=== PATIENT | male | born 1955 | race African-American/Black ===

== ENCOUNTER 2018-07-15 08:09 | Emergency (ER) | payer BC, OTHER ==
--- NOTE | 2018-07-15 09:13 | RAD ---
Exam: Left hip 2 views: HISTORY: Left hip pain, worsening FINDINGS: Arthrosis and degenerative changes left hip joint. Subchondral cystic changes of the acetabulum and f emoral head. No fracture or dislocation. IMPRESSION: Arthrosis and degenerative changes. No fracture or dislocation.
== END 2018-07-15 09:41 | disposition home or self-care (01) ==
LOC: ERS 08:09
DX: M19.90 Unspecified osteoarthritis, unspecified site (principal); L98.9 Disorder of the skin and subcutaneous tissue, unspecified

== ENCOUNTER 2018-08-17 14:19 | Observation (INO) | payer OTHER ==
[2018-08-17 14:46] LABS: #Basophils 0.1 thou/uL (0.0-0.2); #Eosinphils 0.2 thou/uL (0.0-0.7); #Lymphocytes 2.2 thou/uL (1.20-3.40); #Monocytes 0.7 thou/uL (0.11-0.59); %Eosinophils 3.7 % (0.0-10.0); %Lymphocytes 42.9 % (21.0-51.0); %Monocytes 14.1 % (0.0-10.0); %Neutrophils 38.4 % (42.0-75.0); Hemoglobin 14.2 g/dL (14.0-18.0); Mean Corpuscular HGB CONC 34.1 g/dL (32.0-36.0); Mean Corpuscular Hemoglobin 31.2 pg (27.0-31.0); Mean Corpuscular Volume 91.4 fL (78.0-98.0); Mean Platelet Volume 7.4 fL (7.4-10.4); Platelet Count 227 thou/uL (130-400); RBC Distribution Width 12.2 % (11.5-14.5); Red Blood Cell (RBC) Count 4.55 mill/uL (4.70-6.10); White Blood Cell (WBC) Count 5.2 thou/uL (4.8-10.8)
[2018-08-17 14:52] LABS: PTT 32.7 SEC (22.9-36.1); Prothrombin Time 13.8 SEC (12.0-14.7)
[2018-08-17 14:53] LABS: INR-International Normal Ratio 1.1
--- NOTE | 2018-08-17 14:53 | CT ---
CT Brain WO Con: 08/17/2018 2:38 PM CLINICAL HISTORY: Stroke, slurred speech with upper extremity paresthesias. COMPARISON: None. FINDINGS: Hemorrhage: None. Ventricular system: Normal in size and morphology for the patient's age. Cerebral parenchyma: Normal Midline shift: None. Mass: No mass effect. Calvarium: Normal. Visualized Paranasal sinuses: Scattered mild inflammatory mucosal thickening. Superimposed fluid leve l present within the sphenoid sinus. IMPRESSION: No acute intracranial abnormalities. Telephone call placed to ER physician Fernando Abad at time of dictation, 1448 hours. Code CR
--- NOTE | 2018-08-17 14:55 | RAD ---
Exam: Chest one view HISTORY:Altered mental status, stroke, slurred speech, approximately paresthesia Comparison: 16 October 2013 FINDINGS: Lungs: Linear right basilar densities are present. There is elevation of the right hemidiaphragm. Cardiac silhouette: Stable in size. No pleural effusion or pneumothorax. IMPRESSION: Elevated right hemidiaphragm with adjacent scarring and/or atelectasis.
[2018-08-17 15:07] LABS: ALT (SGPT) 31 U/L (8-55); AST (SGOT) 34 U/L (5-34); Albumin 4.9 g/dL (3.4-4.8); Alkaline Phosphatase 58 U/L (40-150); Anion Gap 16 mmol/L (10-20); BUN (Urea Nitrogen) 15 mg/dL (8.4-25.7); Bilirubin, Total 0.7 mg/dL (0.2-1.2); CK (CPK) 1037 U/L (30-200); Calc. Creatinine Clearance 0 mL/min (70-130); Calcium 10.6 mg/dL (7.8-10.44); Carbon Dioxide 24 mmol/L (23-31); Chloride 102 mmol/L (98-107); Estimated GFR-MDRD 64; Globulin 2.9 g/dL (2.4-3.5); Glucose 71 mg/dL (80-115); Potassium 4.2 mmol/L (3.5-5.1); Protein, Total 7.8 g/dL (5.8-8.1); Sodium 138 mmol/L (136-145)
[2018-08-17 16:14] LABS: Bilirubin Negative (Negative); Blood, Urine Negative (Negative); Clarity CLEAR (Clear); Glucose, Urine (Dipstick) Negative (Negative); Leukocyte Negative (Negative); Nitrite Negative (Negative); Protein, Urine (Dipstick) Negative (Neg-Trace); Specific Gravity, Urine 1.017 (1.002-1.036); Urobilinogen 0.2 mg/dL (0.2-1.0); pH, Urine 5.5 (5.0-9.0)
[2018-08-17] MEDS ORDERED: Aspirin Chewable 81 MG TAB ONE (16:25)
[2018-08-17] MEDS ORDERED: Ondansetron PF 4 MG/2 ML Vial IVP PRN (18:05)
[2018-08-17] MEDS ORDERED: Ondansetron ODT 4 MG TAB SL PRN (18:05)
[2018-08-17] MEDS ORDERED: Sodium Chloride 0.9% 1,000 ML IV SCH ×2 (18:05→18:55)
[2018-08-17 18:18] LABS: Troponin I 0.015 ng/mL (< 0.028)
[2018-08-17 18:35] VITALS: BMI 29.0
--- NOTE | 2018-08-17 20:19 | HP ---
This is EILEEN Huerta dictating a report for Stephen Johnson MD. REASON FOR ADMISSION: TIA/CVA rule out. HISTORY OF PRESENT ILLNESS: Mr. Chino is a pleasant 62-year-old man, presents due to unusual symptoms he experienced yesterday. He was prompted by his to come in due to residual tingling in the right thumb. The patient states he began the day yesterday morning with taking a 3-mile walk with his . He states at the end of that he was profusely sweating. 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 The patient states he felt well and himself after the walk, but he admits to not eating more than a banana yesterday, though he reports maintaining adequate hydration. 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 He denies any real weakness or numbness or reduced sensation in his hands, but states whenever he tried to grasp the Bible or his papers, his hands would immediately open and cause him to drop things. He was able to pick the items up repeatedly, but it continued to happen. This lasted about 15-20 minutes. He denies any associated symptoms at that time. No numbness, tingling, or weakness elsewhere. No slurred speech. No headache. No dizziness, nausea, or vomiting. The patient states shortly after he went to a meeting at [employer], he states he sat down at his desk and suddenly fell asleep. He was woken by his staff and was easily awoken. He went into his meeting and during his meeting, states he began to "doze off." The patient states he felt completely drained. He then recalls holding a calendar in his hands, but unable to speak or see for at least 20-30 minutes. He states he was fidgeting with the papers in his hands and the meeting carried on without him. He reports profusely sweating at that time. Again, denies any headache, any chest pain, or shortness of breath. Shortly after that, he fully recovered and denies experiencing any slurred speech. No further vision disturbances. He is unsure if he had blurred vision or if he saw black or white or floaters. The patient is rather vague and unable to describe this episode fully. Since then, he has had no further issues or symptoms except for occasional tingling in his right thumb. REVIEW OF SYSTEMS: The patient denies having any recent fevers or chills. Denies having any headaches or dizziness. He does report having some difficulty walking while in the [employer], but denies any staggering gait or imbalance. He states he felt a bit lightheaded. Has not had any slurred speech, but did have the episode of being unable to speak at all. Denies having any nausea or vomiting. No abdominal pain or cramping. He has felt slightly under the weather the last 3-4 days and developed a cough that is productive for green sputum. Denies having any hemoptysis. No lower leg swelling. No neck pain. No trauma. No urinary symptoms. No bowel changes. His appetite is generally good and he has not had any weight loss. All other review of systems are negative. ALLERGIES: NO KNOWN DRUG ALLERGIES. CURRENT MEDICATIONS: [place]. PAST MEDICAL HISTORY: History of melanoma excised from the left shoulder in 1999. PHYSICAL EXAMINATION: GENERAL: The patient appears well developed, well nourished, and is in no acute distress. He is found sitting comfortably on the stretcher, having dinner. VITAL SIGNS: Temperature 99.2, pulse 64, respirations 17, blood pressure 170/90, O2 saturation 98% on room air. HEENT: Normocephalic and atraumatic. Pupils are equal, round, and reactive to light. Extraocular movements normal with no nystagmus present. Oropharynx is clear. No thrush or ulcers. Oral mucosa moist. NECK: Supple without any lymphadenopathy. No neck tenderness or stiffness. Full range of motion. LUNGS: Clear to auscultation bilaterally without any wheezes or crackles. CARDIAC: Regular rate and rhythm. No audible murmurs. No chest wall tenderness. ABDOMEN: Soft, nondistended, and nontender. No guarding or rigidity. No renal angle tenderness. EXTREMITIES: Without any lower leg edema or swelling. No calf tenderness. NEUROLOGIC: Alert and oriented x3. The patient with slightly reduced sensation and tingling involving only the right thumb. He has 5/5 power in all limbs with full range of motion. Reflexes present and equal bilaterally. Facial movements normal. He does have reduced sensation involving the right cheek with normal sensation also on the right side of his face. No tongue deviation. No cerebellar signs. Gait normal. SKIN: Normal, warm, and dry. No rash. LABORATORY DATA: White blood count 5.2, hemoglobin 14.2, hematocrit 41.6, platelets 227. PT 13.8, INR 1.1, PTT 32.7. Sodium 138, potassium 4.2, BUN 15, creatinine 1.36, GFR 64, glucose 71, calcium 10.6. LFTs unremarkable. CK 1037. Troponin negative x2. Albumin 4.9, total protein 7.8. Prolactin level 7.48. Urinalysis unremarkable. IMAGING DATA: CT brain on 08/17/2018, no acute intracranial abnormalities. There is scattered mild inflammatory mucosal thickening involving the paranasal sinuses. Superimposed fluid level present with the sphenoid sinus. Chest x-ray on 08/17/2018, elevated right hemidiaphragm with adjacent scarring and/or atelectasis. Cardiac silhouette stable in size. Compared to previous study in October 2013. 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 Rhabdomyolysis. The patient was recently extremely active and walking out in the heat with his . Possibly minimally dehydrated. His renal function is deranged. We will hydrate and continue to monitor his renal function. We will repeat CK level with morning labs. The patient is without any muscle aches or pains. He is asymptomatic at present with regard to that. 2. Presumed transient ischemic attack/cerebrovascular accident. The patient does describe reduced sensation involving the right cheek and right thumb. Very localized symptoms with no other neuro deficits or abnormalities. He did experience a moment of being unable to control his both hands during the ceremony yesterday. Unclear if any underlying neurologic abnormality potentially associated with dehydration and feeling under the weather recently. We will complete investigations including echo, carotid ultrasound, and have placed a consultation to Neurology. Further investigations, i.e., MRI to be decided by ID team. We will continue to monitor overnight. The patient was given aspirin 325 mg in the emergency department. We have started a statin and will continue a daily baby aspirin. The patient does have a history of melanoma, however, this was nearly 19 years ago. 3. Bronchitis. The patient with a 4-day history of cough productive for green sputum. He is afebrile and without a white count. We will check lactate level. We will monitor his temperature. He remains afebrile. Likely viral in nature. Chest x-ray was clear. 4. GI prophylaxis. 5. Deep venous thrombosis prophylaxis with mechanical SCDs. 6. Full code status. His surrogate decision maker would be his , Angelica Chino. The patient's case was discussed with Dr. Johnson, who agrees with plan of care as described above. Job ID: [id number]
[2018-08-17] MEDS: HYDROcodone/Acetaminophen 7.5/325 mg Tablet PO SCH (20:21)
[2018-08-17] MEDS ORDERED: Atorvastatin Calcium 40 MG TAB PO SCH (21:00)
[2018-08-17 21:27] LABS: Medtox Reader # READER 4
[2018-08-17 21:28] LABS: Amphetamine Not Detected (NotDetected); Barbiturates Screen Not Detected (NotDetected); Benzodiazepine Screen Not Detected (NotDetected); Cocaine Metabolite Screen Not Detected (NotDetected); Medtox Control Line Valid? VALID (VALID); Methadone Not Detected (NotDetected); Methamphetamine Not Detected (NotDetected); Opiate Screen Detected (NotDetected); Oxycodone Screen Not Detected (NotDetected); Phencyclidine (PCP) Not Detected (NotDetected); THC/Cannabinoid Screen Not Detected (NotDetected); Tricyclic Screen Detected (NotDetected)
[2018-08-17 21:48] LABS: Troponin I 0.013 ng/mL (< 0.028)
[2018-08-18 05:00] LABS: Cardiac Risk 7.7 (Less than 4.5)
[2018-08-18] MEDS: HYDROcodone/Acetaminophen 7.5/325 mg Tablet PO SCH (08:38)
[2018-08-18] MEDS ORDERED: Aspirin 81 mg Enteric Coated Tablet PO SCH (09:00)
--- NOTE | 2018-08-18 09:32 | ULT ---
CAROTID ARTERIAL DOPPLER ULTRASOUND: DATE: 08/18/18 HISTORY: TIA/CVA. TECHNIQUE: Multiplanar Marks scale sonographic imaging of the arterial structures of the neck obtained with color flow and spectral analysis. FINDINGS: Antegrade blood flow and normal arterial waveforms are documented within the carotid and the vertebra l system bilaterally. VESSEL PSV (CM/SEC) EDV (CM/SEC) Right CCA 108 27 Right ICA 67 23 Right ECA 111 23 Left CCA 106 22 Left ICA 76 36 Left ECA 90 22 ICA/CCA ratio is 0.6 on the right and 0.7 on the left. IMPRESSION: No hemodynamically significant stenosis on the basis of sonographic velocity criteria. POS: OFF
[2018-08-18 11:17] LABS: ANA Symphony (Qualitative) Negative (Negative); ANA Symphony (Quantitative) Less than 0.1 Ratio (< 0.7 Negative); dsDNA IgG Antibody Less than 0.5 IU/mL (<10 Negative)
--- NOTE | 2018-08-18 12:12 | MRI ---
EXAM: MRI of the brain without contrast HISTORY: TIA with slurred speech on Saturday that resolved COMPARISON: None TECHNIQUE: Multiplanar multisequence MR images were obtained of the brain without IV contrast. FINDINGS: The brain demonstrates normal signal intensity on all obtained sequences. No restricted diffusion. No hydronephrosis. No extra-axial fluid collection or intracranial hemorrhage. The expected flow voids are present. Corpus callosum, pituitary, and craniocervical junction are within normal limits. The calvarium and overlying soft tissues are unremarkable. The mastoid air cells are well aerated. Mucosal thickening and fluid is seen in the paranasal sinuses . IMPRESSION: No evidence of acute intracranial abnormality.
[2018-08-18] MEDS ORDERED: HYDROcodone/Acetaminophen 7.5/325 mg Tablet PO SCH ×2 (14:00→16:00)
[2018-08-18 15:55] VITALS: BP 165/96; TEMP 98.8
--- NOTE | 2018-08-19 03:38 | DIS ---
DATE OF ADMISSION: 08/17/2018 DATE OF DISCHARGE: 08/18/2018 CHIEF COMPLAINT ON ADMISSION: Lethargy, fatigue, paresthesias including right cheek and right thumb tingling. DISCHARGE DIAGNOSES: 1. Right thumb/right cheek paresthesia with questionable right upper extremity weakness, resolved, secondary to questionable transient ischemic attack, stroke workup was negative. 2. Rhabdomyolysis in the setting of dehydration, improved. 3. Hypertension, newly diagnosed. 4. Hyperlipidemia. 5. Family history of cerebrovascular accident. 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 The patient states that his symptoms began soon after he went on a 3-mile walk with his in the morning. 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 He continued to sweat fairly profusely and began to have trouble holding things in his right hand including his Bible, which he kept dropping. He continued to have some other symptoms evolve such as tingling of his right cheek as well as his right thumb. He presented to the hospital for further workup and treatment. On arrival, the labs were notable for elevated CK over 1000. He was given aspirin and started on statin for presumed TIA. At the time of my interview, all of his presenting symptoms have resolved. His MRI was negative for acute CVA. His echocardiogram showed normal left ventricular systolic function with evidence of grade 1 diastolic dysfunction. The patient has been seen in consultation with Neurology, who did recommend aspirin and statin. The patient denies any chest pain, shortness of breath, or palpitations. He has remained in sinus rhythm throughout his stay, has no abnormalities on his EKG. The patient was cleared for discharge by Dr. Gay , who will also follow up with the patient in the outpatient setting. CONDITION ON DISCHARGE: Stable. DISCHARGE DISPOSITION: Home. DISCHARGE INSTRUCTIONS: The patient has been counseled heavily on routine blood pressure monitoring. His blood pressure was elevated during his stay into the 140s and 160s, and he will be initiated on antihypertensive therapy with amlodipine 2.5mg daily. This was explained to the patient in detail. Regarding his lipid panel, both his total cholesterol and triglycerides were elevated. His LDL was noted to be 141. He will be initiated on statin therapy with Lipitor 40 mg daily and continue aspirin 81 mg daily as well. FOLLOWUP: The patient will follow up with Dr. Leal and Dr. Gay on an outpatient basis. He will continue routine blood pressure monitoring and low-sodium diet. He will present back to the hospital with any return of his symptoms. All findings explained to the patient to his satisfaction. All questions answered. Care of this patient was discussed with Dr. Johnson, who agrees with discharge as above. Job ID: [id number] [id number]
[2018-08-19] MEDS ORDERED: HYDROcodone/Acetaminophen 7.5/325 mg Tablet PO SCH (09:00)
== END 2018-08-18 18:49 | disposition home or self-care (01) ==
LOC: ERS 14:19 → 2SE 18:23
PROVIDERS: ADMIT Internal Medicine; ATTEND Internal Medicine
DX: R20.2 Paresthesia of skin (principal); E86.0 Dehydration; M62.82 Rhabdomyolysis; J40 Bronchitis, not specified as acute or chronic; I10 Essential (primary) hypertension; E78.5 Hyperlipidemia, unspecified; Z79.82 Long term (current) use of aspirin; Z79.899 Other long term (current) drug therapy
CPT/HCPCS: 36415; 36416; 70450; 70551; 71045; 80053; 80061; 80306; 81003; 82550; 84146; 84484; 85025; 85610; 85652; 85730; 86038; 86225; 93005; 93306; 93880; 94760; 96360; G0378

== ENCOUNTER 2020-09-20 07:55 | Outpatient (CLI) | payer MEDICARE, OTHER | END 2020-09-20 07:56 | disposition home or self-care (01) | LOC: BICULT 07:55 | PROVIDERS: ATTEND Internal Medicine | DX: N28.1 Cyst of kidney, acquired (principal) | CPT/HCPCS: 76770 ==

== ENCOUNTER 2020-12-16 09:43 | Outpatient (CLI) | payer MEDICARE, OTHER ==
[2020-12-16 11:10] LABS: Anion Gap 11 mmol/L (10-20); BUN (Urea Nitrogen) 8 mg/dL (8.4-25.7); Calc. Creatinine Clearance 0 mL/min (70-130); Calcium 10.6 mg/dL (7.8-10.44); Carbon Dioxide 27 mmol/L (23-31); Chloride 107 mmol/L (98-107); Glucose 97 mg/dL (80-115); Potassium 4.1 mmol/L (3.5-5.1); Sodium 141 mmol/L (136-145)
[2020-12-16 11:11] LABS: Hemoglobin 12.9 g/dL (13.5-17.5); Mean Corpuscular HGB CONC 33.8 g/dL (32.0-36.0); Mean Corpuscular Hemoglobin 30.6 pg (27.0-33.0); Mean Corpuscular Volume 90.7 fl (81.2-95.1); Mean Platelet Volume 10.5 fl (7.4-10.4); Platelet Count 207 10x3/uL (150-450); RBC Distribution Width 12.9 % (11.5-14.5); Red Blood Cell (RBC) Count 4.21 10x6/uL (4.32-5.72); White Blood Cell (WBC) Count 4.6 10x3/uL (3.5-10.5)
[2020-12-16 11:23] LABS: Prothrombin Time 10.8 sec (9.5-12.1)
[2020-12-16 12:03] LABS: Bilirubin Neg (Negative); Blood, Urine Negative (Negative); Clarity Clear (Clear); Glucose, Urine (Dipstick) Normal (Negative); Ketone, Urine Negative (Negative); Leukocyte 25 (Negative); Nitrite Negative (Negative); Protein, Urine (Dipstick) 15 mg/dl (Neg-Trace); Specific Gravity, Urine 1.025 (1.002-1.036)
[2020-12-16 12:31] LABS: Bacteria/HPF None Seen HPF (None Seen); RBC/HPF None Seen HPF (0-3); Squamous Epithelial 0-3 HPF (0-3); WBC/HPF 0-3 HPF (0-3)
[2020-12-16 18:49] LABS: SARS-CoV-2 PCR by NAA Not Detected (NotDetected)
== END 2020-12-16 09:44 | disposition home or self-care (01) ==
LOC: LABBT 09:43
PROVIDERS: ATTEND Urology
DX: Z01.818 Encounter for other preprocedural examination (principal); Z12.5 Encounter for screening for malignant neoplasm of prostate; N28.1 Cyst of kidney, acquired; G45.9 Transient cerebral ischemic attack, unspecified; M54.42 Lumbago with sciatica, left side; N35.912 Unspecified bulbous urethral stricture, male; N40.1 Benign prostatic hyperplasia with lower urinary tract symptoms; R35.0 Frequency of micturition; N48.6 Induration penis plastica; Z87.448 Personal history of other diseases of urinary system; Z80.42 Family history of malignant neoplasm of prostate; Z79.891 Long term (current) use of opiate analgesic; Z20.822 Contact with and (suspected) exposure to COVID-19
CPT/HCPCS: 80048; 81001; 85027; 85610; 85730; 87086; 93005; U0003; U0005; 93010

== ENCOUNTER 2020-12-21 07:29 | Day surgery (SDC) | payer MEDICARE, OTHER ==
[2020-12-20 10:45] VITALS: BMI 28.1
[2020-12-21] MEDS ORDERED: Levofloxacin 500 mg/D5W 100 ml Premix Bag ONE (08:23)
[2020-12-21] MEDS ORDERED: Midazolam HCl 2 mg/2 ml Vial ONE (10:42)
[2020-12-21] MEDS ORDERED: Fentanyl 100 MCG/2 ML VIAL ONE ×2 (10:42→13:32)
[2020-12-21] MEDS ORDERED: Ondansetron PF 4 MG/2 ML Vial ONE (10:58)
[2020-12-21] MEDS ORDERED: Dexamethasone 20 MG/5 ML VIAL ONE (10:58)
[2020-12-21] MEDS ORDERED: Oxybutynin 5 MG TAB ONE (11:45)
[2020-12-21] MEDS ORDERED: Phenazopyridine HCl 100 MG TAB ONE (11:45)
[2020-12-21] MEDS ORDERED: Morphine 4 MG/ML VIAL ONE ×2 (12:41→13:14)
[2020-12-21] MEDS ORDERED: Hyoscyamine Sulfate SL 0.125 mg Tablet ONE (12:54)
[2020-12-21] MEDS ORDERED: hydrALAZINE 20 MG/ML VIAL ONE (13:34)
[2020-12-21] MEDS ORDERED: Glycopyrrolate 0.2 MG/ML 5 ML SYRINGE ONE (13:34)
[2020-12-21] MEDS ORDERED: Ketorolac Tromethamine 30 MG/ML VIAL ONE (14:05)
[2020-12-21] MEDS ORDERED: HYDROcodone/Acetaminophen 5/325 mg Tablet ONE (14:49)
== END 2020-12-21 15:31 | disposition home or self-care (01) ==
LOC: SDC 07:29
PROVIDERS: ATTEND Urology
PROC: 0T7D8DZ Dilation of Urethra with Intraluminal Device, Via Natural or Artificial Opening Endoscopic (ICD-10-PCS; principal; 2020-12-21)
DX: N40.1 Benign prostatic hyperplasia with lower urinary tract symptoms (principal); R35.0 Frequency of micturition; N28.1 Cyst of kidney, acquired; N35.912 Unspecified bulbous urethral stricture, male; N48.6 Induration penis plastica; E78.5 Hyperlipidemia, unspecified; J45.909 Unspecified asthma, uncomplicated; I10 Essential (primary) hypertension; M54.42 Lumbago with sciatica, left side; Z86.73 Personal history of transient ischemic attack (TIA), and cerebral infarction without residual deficits; Z79.82 Long term (current) use of aspirin; Z79.899 Other long term (current) drug therapy; Z80.42 Family history of malignant neoplasm of prostate
CPT/HCPCS: J0360; J1100; J1885; J1956; J2250; J2270; J2405; J3010; L8699

== ENCOUNTER 2021-08-27 16:14 | Emergency (ER) | payer MEDICARE, OTHER ==
[2021-08-27] MEDS ORDERED: Ketorolac Tromethamine 30 MG/ML VIAL ONE (17:24)
[2021-08-27] MEDS ORDERED: Acetaminophen 500 MG TAB ONE (17:24)
[2021-08-27] MEDS ORDERED: Morphine 4 MG/ML VIAL ONE (17:24)
== END 2021-08-27 20:22 | disposition home or self-care (01) ==
LOC: ERS 16:14
DX: S39.012A Strain of muscle, fascia and tendon of lower back, initial encounter (principal); G89.29 Other chronic pain; I10 Essential (primary) hypertension; E78.5 Hyperlipidemia, unspecified; Z79.899 Other long term (current) drug therapy; X50.0XXA Overexertion from strenuous movement or load, initial encounter
CPT/HCPCS: 70450; 72100; 72125; 72131; 96372; J1885; J2270

== ENCOUNTER 2021-08-28 13:39 | Emergency (ER) | payer MEDICARE, OTHER ==
[2021-08-28] MEDS ORDERED: Ondansetron PF 4 MG/2 ML Vial ONE (13:54)
[2021-08-28] MEDS ORDERED: Fentanyl 100 MCG/2 ML VIAL ONE (13:54)
[2021-08-28] MEDS ORDERED: Dexamethasone 10 MG/ML VIAL ONE (15:26)
== END 2021-08-28 15:30 | disposition home or self-care (01) ==
LOC: ERS 13:39
DX: S09.90XA Unspecified injury of head, initial encounter (principal); M25.551 Pain in right hip; E78.5 Hyperlipidemia, unspecified; I10 Essential (primary) hypertension; Z79.899 Other long term (current) drug therapy; W06.XXXA Fall from bed, initial encounter
CPT/HCPCS: 70450; 72125; 96374; 96375; 96376; J1100; J2405; J3010

== ENCOUNTER 2022-06-27 14:36 | Outpatient (CLI) | payer MEDICARE, OTHER | END 2022-06-27 14:37 | disposition home or self-care (01) | LOC: BICMAMMO 14:36 | PROVIDERS: ATTEND Internal Medicine | DX: M89.9 Disorder of bone, unspecified (principal) | CPT/HCPCS: 77080 ==

== ENCOUNTER 2022-06-29 08:48 | Outpatient (CLI) | payer MEDICARE, OTHER | END 2022-06-29 08:49 | disposition home or self-care (01) | LOC: NM 08:48 | PROVIDERS: ATTEND Internal Medicine | DX: E21.0 Primary hyperparathyroidism (principal); E21.5 Disorder of parathyroid gland, unspecified; M79.89 Other specified soft tissue disorders | CPT/HCPCS: 78072; A9500 ==

== ENCOUNTER 2022-08-01 13:16 | Outpatient (CLI) | payer MEDICARE, OTHER ==
[~2022-08-01 13:16] MED LIST: Iopamidol 370 76% 100 ML VIAL ONE
== END 2022-08-01 13:17 | disposition home or self-care (01) ==
LOC: BICCT 13:16
PROVIDERS: ATTEND Internal Medicine
DX: R22.1 Localized swelling, mass and lump, neck (principal); J38.01 Paralysis of vocal cords and larynx, unilateral
CPT/HCPCS: 70491; 82565; Q9967

== ENCOUNTER 2022-09-13 10:46 | Day surgery (SDC) | payer MEDICARE, OTHER ==
[2022-09-12 13:42] VITALS: BMI 29.1
[2022-09-13] MEDS ORDERED: Oxymetazoline HCl 0.05% (30 ML BOT) ONE ×2 (13:29→15:05)
[2022-09-13 13:51] LABS: Hemoglobin 14.3 g/dL (14.0-18.0); Platelet Count 214 10x3/uL (130-400)
[2022-09-13 14:19] LABS: Anion Gap 12 mmol/L (10-20); BUN (Urea Nitrogen) 11 mg/dL (8.4-25.7); Calc. Creatinine Clearance 92 mL/min (70-130); Calcium 10.8 mg/dL (7.8-10.44); Carbon Dioxide 27 mmol/L (23-31); Chloride 108 mmol/L (98-107); Estimated GFR 75; Glucose 95 mg/dL (80-115); Potassium 4.3 mmol/L (3.5-5.1); Sodium 143 mmol/L (136-145)
[2022-09-13] MEDS ORDERED: Lidocaine 1% (PF) 30 ML VIAL ONE (15:05)
[2022-09-13] MEDS ORDERED: EPINEPHrine 1 MG/ML AMP ONE (15:05)
[2022-09-13] MEDS ORDERED: methylPREDNISolone Acetate 40 mg/ml Vial ONE (15:34)
[2022-09-13] MEDS ORDERED: SUGAMMADEX SODIUM 200 MG/2 ML VIAL ONE (15:34)
[2022-09-13] MEDS ORDERED: Fentanyl 250 MCG/5 ML VIAL ONE (15:34)
[2022-09-13] MEDS ORDERED: PROPOFOL 200 MG/20 ML VIAL ONE (15:42)
[2022-09-13] MEDS ORDERED: PHENYLEPHRINE-NS 100 MCG/ML 10 ML SYRINGE ONE (15:42)
[2022-09-13] MEDS ORDERED: Dexamethasone 20 MG/5 ML VIAL ONE (15:42)
[2022-09-13] MEDS ORDERED: Labetalol HCl 100 MG/20 ML VIAL ONE (15:42)
[2022-09-13] MEDS ORDERED: Rocuronium Bromide 10 MG/ML (10ML VIAL) ONE (15:42)
[2022-09-13] MEDS ORDERED: Ondansetron PF 4 MG/2 ML Vial ONE (15:42)
[2022-09-13] MEDS ORDERED: fentaNYL 50 mcg/mL 1 mL Vial ONE ×2 (17:44→17:55)
[2022-09-13] MEDS ORDERED: HYDROcodone/Acetaminophen 5/325 mg Tablet ONE (18:47)
== END 2022-09-13 19:00 | disposition home or self-care (01) ==
LOC: SDC 10:46
PROVIDERS: ATTEND Specialist
PROC: 09BV8ZZ Excision of Left Ethmoid Sinus, Via Natural or Artificial Opening Endoscopic (ICD-10-PCS; principal; 2022-09-13)
PROC: 09BW8ZZ Excision of Right Sphenoid Sinus, Via Natural or Artificial Opening Endoscopic (ICD-10-PCS; 2022-09-13)
PROC: 09BX8ZZ Excision of Left Sphenoid Sinus, Via Natural or Artificial Opening Endoscopic (ICD-10-PCS; 2022-09-13)
PROC: 09BQ8ZZ Excision of Right Maxillary Sinus, Via Natural or Artificial Opening Endoscopic (ICD-10-PCS; 2022-09-13)
PROC: 09BR8ZZ Excision of Left Maxillary Sinus, Via Natural or Artificial Opening Endoscopic (ICD-10-PCS; 2022-09-13)
PROC: 09BS8ZZ Excision of Right Frontal Sinus, Via Natural or Artificial Opening Endoscopic (ICD-10-PCS; 2022-09-13)
PROC: 09BT8ZZ Excision of Left Frontal Sinus, Via Natural or Artificial Opening Endoscopic (ICD-10-PCS; 2022-09-13)
PROC: 09BU8ZZ Excision of Right Ethmoid Sinus, Via Natural or Artificial Opening Endoscopic (ICD-10-PCS; 2022-09-13)
PROC: 09BM0ZZ Excision of Nasal Septum, Open Approach (ICD-10-PCS; 2022-09-13)
PROC: 09BL0ZZ Excision of Nasal Turbinate, Open Approach (ICD-10-PCS; 2022-09-13)
DX: J34.2 Deviated nasal septum (principal); J34.3 Hypertrophy of nasal turbinates; J32.4 Chronic pansinusitis; J33.0 Polyp of nasal cavity; G47.33 Obstructive sleep apnea (adult) (pediatric); I10 Essential (primary) hypertension; E78.00 Pure hypercholesterolemia, unspecified; Z79.899 Other long term (current) drug therapy
CPT/HCPCS: 30140; 30520; 31253; 31256; 31287; 80048; 85014; 85018; 85049; 93005; C1776; J3010; 93010; J0171; J1030; J1100; J2001; J2405; J2704

== ENCOUNTER 2023-01-01 07:18 | Outpatient (CLI) | payer MEDICARE, OTHER ==
[2023-01-01] MEDS ORDERED: Iopamidol-370 76% 500 ML MDV (1 ML CHARGE) ONE (09:18)
== END 2023-01-01 07:19 | disposition home or self-care (01) ==
LOC: CT 07:18
PROVIDERS: ATTEND Internal Medicine
DX: E21.0 Primary hyperparathyroidism (principal); E04.1 Nontoxic single thyroid nodule
CPT/HCPCS: 70492

== ENCOUNTER 2023-01-22 15:58 | Outpatient (CLI) | payer MEDICARE, OTHER ==
[2023-01-22 17:01] LABS: Hematocrit 37.7 % (38.8-50.0); Hemoglobin 12.8 g/dL (13.5-17.5)
[2023-01-22 17:07] LABS: Anion Gap 13 mmol/L (10-20); BUN (Urea Nitrogen) 14 mg/dL (8.4-25.7); Calc. Creatinine Clearance 0 mL/min (70-130); Calcium 10.5 mg/dL (7.8-10.44); Carbon Dioxide 27 mmol/L (23-31); Chloride 105 mmol/L (98-107); Estimated GFR 60; Glucose 103 mg/dL (80-115); Potassium 3.7 mmol/L (3.5-5.1); Sodium 141 mmol/L (136-145)
== END 2023-01-22 15:59 | disposition home or self-care (01) ==
LOC: LABBT 15:58
PROVIDERS: ATTEND Specialist
DX: Z01.818 Encounter for other preprocedural examination (principal); J38.00 Paralysis of vocal cords and larynx, unspecified; E20.9 Hypoparathyroidism, unspecified
CPT/HCPCS: 80048; 85014; 85018; 93005; 93010

== ENCOUNTER 2023-01-24 07:55 | Day surgery (SDC) | payer MEDICARE, OTHER ==
[2023-01-22 16:40] VITALS: BMI 29.9
[2023-01-24] MEDS ORDERED: Midazolam HCl 2 mg/2 ml Vial ONE (11:33)
[2023-01-24] MEDS ORDERED: EPINEPHrine 1 MG/ML VIAL ONE (11:35)
[2023-01-24] MEDS ORDERED: Lidocaine 1% (PF) 30 ML VIAL ONE (11:35)
[2023-01-24] MEDS ORDERED: fentaNYL PF 100 MCG/2 ML SYRINGE ONE (11:37)
[2023-01-24] MEDS ORDERED: PROPOFOL 200 MG/20 ML VIAL ONE (12:03)
[2023-01-24] MEDS ORDERED: Ondansetron PF 4 MG/2 ML Vial ONE (12:03)
[2023-01-24] MEDS ORDERED: Dexamethasone 20 MG/5 ML VIAL ONE (12:03)
[2023-01-24] MEDS ORDERED: Lidocaine 1% PF 5 ML VIAL ONE (12:03)
[2023-01-24] MEDS ORDERED: Rocuronium Bromide 10 MG/ML (10ML VIAL) ONE (12:03)
[2023-01-24] MEDS ORDERED: PHENYLEPHRINE-NS 100 MCG/ML 10 ML SYRINGE ONE (12:03)
[2023-01-24] MEDS ORDERED: ePHEDrine Sulfate 50 MG/10 ML VIAL ONE (12:03)
[2023-01-24] MEDS ORDERED: fentaNYL 50 mcg/mL 1 mL Vial ONE ×4 (14:34→15:19)
[2023-01-24] MEDS ORDERED: Hydrocodone-Acetamin 15 ML UDCUP ONE (15:59)
== END 2023-01-24 17:05 | disposition home or self-care (01) ==
LOC: SDC 07:55
PROVIDERS: ATTEND Specialist
PROC: 3E0F83Z Introduction of Anti-inflammatory into Respiratory Tract, Via Natural or Artificial Opening Endoscopic (ICD-10-PCS; principal; 2023-01-24)
PROC: 0GTP0ZZ Resection of Left Inferior Parathyroid Gland, Open Approach (ICD-10-PCS; 2023-01-24)
DX: D35.1 Benign neoplasm of parathyroid gland (principal); J38.00 Paralysis of vocal cords and larynx, unspecified; E21.3 Hyperparathyroidism, unspecified; R49.0 Dysphonia; E78.00 Pure hypercholesterolemia, unspecified; E83.52 Hypercalcemia; I10 Essential (primary) hypertension; Z98.890 Other specified postprocedural states; Z79.899 Other long term (current) drug therapy
CPT/HCPCS: 31571; 60500; C1776; C1889; J0171; J3010; 88305; 88331; J1100; J2001; J2250; J2405; J2704